=== PATIENT | male | born 1965 | race Hispanic/Latino ===

== ENCOUNTER 2023-07-11 09:23 | Emergency (ER) | payer OTHER, SELFPAY ==
[2023-07-11 09:37] VITALS: BP 179/92; PULSE 55; RESP 16; TEMP 35.7; O2SAT 98
--- NOTE | 2023-07-11 09:43 | ED.NECK ---
HPI - Neck Pain/Injury General Chief Complaint: Neck Pain/Injury Stated Complaint: NECK PAIN Time Seen by Provider: 07/11/23 09:51 Source: patient and RN notes reviewed Mode of arrival: ambulatory Limitations: language barrier (enrollment services vice president used) History of Present Illness HPI Narrative: 58-year-old male presents with concern for left-sided neck pain. Reports he has had pain for about 3 weeks, he seen 2 different providers, 1 thought he could have an ear infection prescribed him cephalexin, he reports that did not help. He reports he then got a prescription for cyclobenzaprine and he again did not have relief. He reports pain is minimal at rest, worsens with turning the neck or looking up and down. He denies tenderness to touch. He denies fever or headache. He denies rash. He denies weakness in any extremity. MD complaint: neck pain Related Data Home Medications Medication Instructions Recorded Confirmed atorvastatin 40 mg tablet 40 mg PO DAILY 07/11/23 07/11/23 hydrochlorothiazide 25 mg tablet 25 mg PO DAILY 07/11/23 07/11/23 telmisartan 80 mg tablet 80 mg PO DAILY 07/11/23 07/11/23 Allergies Allergy/AdvReac Type Severity Reaction Status Date / Time No Known Allergies Allergy Verified 07/11/23 09:51 Review of Systems Review of Systems: CONSTITUTIONAL: Denies malaise, chills, sweats, or fever. CARDIOVASCULAR: Denies chest pain, palpitations, or edema. RESPIRATORY: Denies cough or dyspnea. SKIN: Denies rash or itching, bruising, redness, swelling. MUSCULOSKELETAL: Reports muscle did neck pain NEUROLOGIC: Denies numbness, weakness All systems reviewed & are unremarkable except as noted in HPI and below PMFSH Comments At time of signature, agree with nursing past medical, surgical, social and family history. There is no relevant family history pertinent to the presenting complaint Exam Narrative: GENERAL: Well-appearing, well-nourished, and in no acute distress. HEAD: Normocephalic, atraumatic. EYES: PERRLA and EOMI. NECK: Supple. No lymphadenopathy. CHEST: Clear to auscultation. No respiratory distress. HEART: Regular rate and rhythm. Distal pulses palpable and equal, cap refill <3 seconds MUSCULOSKELETAL: Normal range of motion and strength in all extremities. Normal sensation in dermatomal distributions with sensitivity to light touch and pain. No midline neck tenderness to palpation. No paraspinal tenderness. Transfers from sitting to standing. SKIN: Warm, dry, no rash. No ecchymosis, erythema, open wounds to my. NEURO: No focal deficits. Alert and oriented x3. Reflexes intact. Normal gait. PSYCH: Normal mood and affect Course Course Emergency Course: Patient is aware of diagnosis, understands and agrees to treatment plan. Anticipatory guidance given. Patient agrees to follow-up as directed and is aware of reasons to seek care at the emergency department. Portions of this record may have been created with voice recognition software Level of Care: Express Care Visit Vital Signs Vital signs: Vital Signs Temperature 96.3 F L 07/11/23 09:37 Pulse Rate 55 L 07/11/23 09:37 Respiratory Rate 16 07/11/23 09:37 Blood Pressure 179/92 H 07/11/23 09:37 Pulse Oximetry 98 07/11/23 09:37 Temperature 96.3 F L 07/11/23 09:37 Pulse Rate 55 L 07/11/23 09:37 Respiratory Rate 16 07/11/23 09:37 Blood Pressure 179/92 H 07/11/23 09:37 Pulse Oximetry 98 07/11/23 09:37 Reviewed. MDM - Neck Pain/Injury MDM Narrative Medical decision making narrative: Exam findings show no acute concerns or changes; patient is non-toxic appearing and is in no distress. Patient is appropriate for outpatient treatment and follow-up. Differential Diagnosis Differential diagnosis: Likely disc disorder of cervical region, whiplash injury to neck, cervical radiculopathy, torticollis and strain of neck muscle Critical Care Time Critical Care Time Critical Care Time: No Discharge Plan Discharge
== END 2023-07-11 10:12 | disposition home or self-care (01) ==
PROVIDERS: Emergency Provider Nurse Practitioner
DX: S16.1XXA Strain of muscle, fascia and tendon at neck level, initial encounter (principal); X58.XXXA Exposure to other specified factors, initial encounter; E78.00 Pure hypercholesterolemia, unspecified; I10 Essential (primary) hypertension
CPT/HCPCS: 99213; G0463